=== PATIENT | male | born 1955 | race Caucasian/White ===

== ENCOUNTER 2020-03-24 21:10 | Observation (INO) | payer MEDICARE, MEDICAID ==
[~2020-03-24] VITALS: Ht 188 cm; Wt 90.9 kg
[2020-03-24] MEDS ORDERED: ASPIRIN 81 MG TABLET CHEW PO ONE (21:30)
[2020-03-24] MEDS ORDERED: ASPIRIN 81 MG TABLET CHEW ONE (21:36)
--- NOTE | 2020-03-24 21:37 | NUR ---
ERP TO BEDSIDE AT 2130.
[2020-03-24 22:06] LABS: MEAN CORPUSCULAR HEMOGLOBIN 20.3 pg (27.5-34.5); MEAN CORPUSCULAR HGB CONC 29.9 g/dL (33.2-36.2); MEAN CORPUSCULAR VOLUME 68.1 fL (81-97); MEAN PLATELET VOLUME 8.4 fL (7.4-10.4); PLATELET COUNT 425 x10^3/uL (130-400); RED BLOOD COUNT 4.43 x10^6/uL (4.38-5.82)
[2020-03-24 22:17] LABS: ANION GAP 7 mmol/L (5-15); CHLORIDE 102 mmol/L (98-107); CREATININE 1.16 mg/dL (0.7-1.3)
[2020-03-24 22:21] LABS: TROPONIN I < 0.015 ng/mL (0.000-0.045)
[2020-03-24 22:28] LABS: BASOPHILS # (AUTO) 0.03 x10^3/uL (0-0.1); BASOPHILS % (AUTO) 0 % (0-1); EOSINOPHILS # (AUTO) 0.39 x10^3/uL (0-0.4); EOSINOPHILS % (AUTO) 4 % (1-7); LYMPHOCYTES # (AUTO) 1.56 x10^3/uL (1-3.4); LYMPHOCYTES % (AUTO) 15 % (22-44); MD MORPH REVIEW ONLY; MONOCYTES # (AUTO) 0.79 x10^3/uL (0.2-0.8); MONOCYTES % (AUTO) 7 % (2-9); NEUTROPHILS # (AUTO) 7.83 x10^3/uL (1.8-6.8); NEUTROPHILS % (AUTO) 74 % (42-75)
[2020-03-24 22:29] LABS: ANISOCYTOSIS 1+
[2020-03-24 22:30] LABS: MICROCYTOSIS 1+; POLYCHROMASIA 1+
[2020-03-24 22:31] LABS: HYPOCHROMIA 1+; OVALOCYTES 1+; STOMATOCYTES 1+
[2020-03-24 22:32] LABS: <PLATELET ESTIMATE> INCREASED; LARGE PLATELETS 1+
--- NOTE | 2020-03-24 23:08 | NUR ---
PT STATES HE IS FREE FROM PAIN.
--- NOTE | 2020-03-24 23:40 | NUR ---
ERP BACK TO BEDSIDE. Addendum: 03/24/20 at 2340 by [email or web address] ERP BACK TO BEDSIDE TO UPDATE PT ON POC.
--- NOTE | 2020-03-25 | NUR ---
ADMITTING PROVIDER AT BEDSIDE.
--- NOTE | 2020-03-25 00:01 | NUR ---
LATE ENTRY SUMMARY NOTE: THIS PT STATES HIS CP AWOKE HIM FROM SLEEP. PT STATES IT'S BEEN REOCCURING FOR THE PAST COUPLE NIGHTS. PT DESCRIBES PAIN DULL ON THE LEFT SIDE. PT STATES HIS PAIN WAS RELIEVED WITH ASA. HE DENIED SOB. HE HAS A HX OF MULTIPLE MIs WITH MULTIPLE STENT PLACEMENTS. HE ALSO HAS A PACEMAKER. 2.5 YEARS AGO HE WAS DIAGNOSED WITH COLO-RECTAL CA, CONSIDERING HOSPICE CARE. PT STATES HE BLEEDS FROM HIS RECTUM BECAUSE OF HIS DIAGNOSIS BUT IS NOT CONCERED ABOUT HIS BOWEL HABITS. PT HAS BEEN LAYING IN BED CONNECTED TO BP, CARDIAC AND O2 MONITORS IN POSITION OF COMFORT. CALL LIGHT IN REACH AND VISITOR HAS REMAINED AT THE BEDSIDE.
[2020-03-25 00:41] VITALS: BP 100/60
[2020-03-25] MEDS ORDERED: hydrALAzine 20 MG/ML, 1ML IVPush PRN (01:00)
[2020-03-25] MEDS ORDERED: morphine SULFATE 10 MG/ML, 1ML IVPush PRN (01:00)
[2020-03-25] MEDS ORDERED: POLYETHYLENE GLYCOL 17 GM PACKET PO PRN (01:00)
[2020-03-25] MEDS ORDERED: MELATONIN 5 MG TABLET PO PRN (01:00)
[2020-03-25] MEDS ORDERED: DOCUSATE 100 MG CAPSULE PO PRN (01:00)
[2020-03-25] MEDS ORDERED: ACETAMINOPHEN 325 MG TABLET PO PRN (01:00)
[2020-03-25] MEDS ORDERED: HYDR-3245 PO (01:10)
[2020-03-25] MEDS ORDERED: AMIO100T4 PO (01:10)
[2020-03-25] MEDS ORDERED: AMLO10TA8 PO (01:10)
[2020-03-25] MEDS ORDERED: SPIR25TA5 PO (01:10)
[2020-03-25] MEDS ORDERED: INSU100V8 SQ (01:10)
[2020-03-25] MEDS ORDERED: INSU100V12 SQ (01:10)
[2020-03-25] MEDS ORDERED: LISI2.5T PO (01:10)
[2020-03-25] MEDS ORDERED: METO25TA35 PO (01:10)
[2020-03-25 04:29] VITALS: BP 99/61
[2020-03-25] MEDS: HYDROcodone/APAP 10/325 MG TABLET PO PRN ×2 (04:30→14:33)
[2020-03-25 04:35] LABS: TROPONIN I < 0.015 ng/mL (0.000-0.045)
[2020-03-25 07:19] VITALS: BP 113/69
[2020-03-25] MEDS ORDERED: REGADENOSON 0.4 MG/5 ML SYRINGE ONE (08:32)
[2020-03-25] MEDS ORDERED: morphine SULFATE 100 MG TABLET.ER PO SCH (09:00)
[2020-03-25 12:15] VITALS: BP 113/66
== END 2020-03-25 15:40 | disposition home or self-care (01) ==
LOC: ED 21:40 → INTOOBSV 23:44 → EDIP 23:44 → 5SO 03-25 00:44 → DCLOUNGE 03-25 15:35
PROVIDERS: ADMIT Student in an Organized Health Care Education/Training Program; ATTEND Hospitalist
DX: I25.10 Atherosclerotic heart disease of native coronary artery without angina pectoris (principal); I25.5 Ischemic cardiomyopathy; I11.0 Hypertensive heart disease with heart failure; I50.22 Chronic systolic (congestive) heart failure; C20 Malignant neoplasm of rectum; E11.65 Type 2 diabetes mellitus with hyperglycemia; J44.9 Chronic obstructive pulmonary disease, unspecified; I25.2 Old myocardial infarction; D64.9 Anemia, unspecified; F11.90 Opioid use, unspecified, uncomplicated; E78.5 Hyperlipidemia, unspecified; Z79.82 Long term (current) use of aspirin; Z79.899 Other long term (current) drug therapy; Z85.038 Personal history of other malignant neoplasm of large intestine; Z87.891 Personal history of nicotine dependence; Z95.0 Presence of cardiac pacemaker; Z79.02 Long term (current) use of antithrombotics/antiplatelets; Z79.4 Long term (current) use of insulin; Z95.5 Presence of coronary angioplasty implant and graft
CPT/HCPCS: 36415; 71045; 78452; 80048; 82040; 83880; 84484; 85025; 93005; 93017; 93306; 99285; A9502; G0378; J2785

== ENCOUNTER 2020-10-08 08:32 | Day surgery (SDC) | payer MEDICARE, MEDICAID ==
[~2020-10-08] VITALS: Ht 188 cm; Wt 91.8 kg
[~2020-10-08 08:32] MED LIST: AMIO100T4 PO; AMLO-211 PO; HYDR1TAB53 PO; INSU100V12 SQ; INSU100V8 SQ; LISI2.5T PO; METO25TA35 PO; SPIR25TA5 PO
[2020-10-08] MEDS ORDERED: SODIUM CHLORIDE 0.9% 1,000 ML IV SCH (09:00)
[2020-10-08 09:08] VITALS: BP 107/64
[2020-10-08 09:26] LABS: BASOPHILS % (AUTO) 1 % (0-1); EOSINOPHILS % (AUTO) 2 % (1-7); LYMPHOCYTES % (AUTO) 14 % (22-44); MEAN CORPUSCULAR HEMOGLOBIN 22.8 pg (27.5-34.5); MEAN CORPUSCULAR HGB CONC 31.3 g/dL (33.2-36.2); MEAN PLATELET VOLUME 7.9 fL (7.4-10.4); MONOCYTES % (AUTO) 11 % (2-9); NEUTROPHILS % (AUTO) 73 % (42-75); PLATELET COUNT 375 x10^3/uL (130-400); RED BLOOD COUNT 4.11 x10^6/uL (4.38-5.82); RED CELL DISTRIBUTION WIDTH 16.1 % (9.4-14.8)
[2020-10-08] MEDS ORDERED: Morphine ER PO (09:26)
[2020-10-08] MEDS ORDERED: OMEP-110 PO (09:26)
[2020-10-08] MEDS ORDERED: INSU100I28 PO (09:26)
[2020-10-08] MEDS ORDERED: ROSU5TAB PO (09:26)
[2020-10-08] MEDS ORDERED: LISI5TAB7 PO (09:26)
[2020-10-08] MEDS ORDERED: SPIR25TA PO (09:26)
[2020-10-08] MEDS ORDERED: NITR0.6T4 SL (09:26)
[2020-10-08] MEDS ORDERED: ALBU8.5H8 INH (09:28)
[2020-10-08] MEDS ORDERED: CHOL10003 PO (09:28)
[2020-10-08] MEDS ORDERED: MIDAZOLAM 1 MG/ML, 5ML ONE (09:29)
[2020-10-08] MEDS ORDERED: FENTANYL PF 100 MCG/2ML ONE (09:29)
[2020-10-08] MEDS ORDERED: LIDOCAINE 1%, 20ML ONE (09:29)
[2020-10-08] MEDS ORDERED: CEFAZOLIN 1,000 MG ONE (09:29)
[2020-10-08] MEDS ORDERED: CEFAZOLIN PMX 1GM/50ML 50 ML ONE (09:29)
[2020-10-08 09:32] LABS: MD NO
[2020-10-08] MEDS ORDERED: HYDR120S6 PO (09:33)
[2020-10-08] MEDS ORDERED: DIPH25CA61 PO (09:33)
[2020-10-08 09:50] LABS: ANION GAP 7 mmol/L (5-15); CALCIUM 8.8 mg/dL (8.5-10.1); CHLORIDE 102 mmol/L (98-107)
[2020-10-08 09:51] LABS: CREATININE 1.28 mg/dL (0.7-1.3)
[2020-10-08] MEDS ORDERED: TEMPLATE NON-FORMULARY MED. (Nitroglycerin 0.6** (Nitroglycerin**) 0.6 MG) SL PRN (10:30)
[2020-10-08] MEDS ORDERED: ACETAMINOPHEN 325 MG TABLET PO PRN (10:30)
[2020-10-08] MEDS ORDERED: HYDROcodone/APAP 10/325 MG TABLET PO SCH (10:30)
[2020-10-08] MEDS ORDERED: INSULIN DETEMIR PO PRN (10:30)
[2020-10-08] MEDS ORDERED: Hold all anticoagulants for 24 hours (including Lovenox and Heparin) MC PRN (10:30)
[2020-10-08] MEDS ORDERED: [UNRECOGNIZED DRUG - OTHER] SQ SCH (21:00)
[2020-10-08] MEDS ORDERED: SODIUM CHLORIDE FLUSH 10ML SYR IVF SCH (21:00)
[2020-10-08] MEDS ORDERED: INSULN ASP PRT SQ SCH (21:00)
[2020-10-08] MEDS ORDERED: TEMPLATE NON-FORMULARY MED. (Rosuvastatin Calcium** (Crestor**) 5 MG) PO SCH (21:00)
[2020-10-08] MEDS ORDERED: METOPROLOL TARTRATE 25 MG TAB PO SCH (21:00)
[2020-10-08] MEDS ORDERED: INSULIN ASPART SQ SCH (21:00)
[2020-10-09] MEDS ORDERED: DIPHENHYDRAMINE 25 MG CAPSULE PO SCH (09:00)
[2020-10-09] MEDS ORDERED: SPIRONOLACTONE 25 MG TABLET PO SCH (09:00)
[2020-10-09] MEDS ORDERED: LISINOPRIL 5 MG TABLET PO SCH (09:00)
[2020-10-09] MEDS ORDERED: [UNRECOGNIZED DRUG - OTHER] PO SCH (09:00)
[2020-10-09] MEDS ORDERED: OMEPRAZOLE 20 MG CAPSULE.DR PO SCH (09:00)
[2020-10-09] MEDS ORDERED: CHOLECALCIFEROL 1,000 UNIT TABLET PO SCH (09:00)
== END 2020-10-08 12:26 | disposition home or self-care (01) ==
LOC: CACL 08:32
PROVIDERS: ATTEND Internal Medicine Cardiovascular Disease
DX: Z45.02 Encounter for adjustment and management of automatic implantable cardiac defibrillator (principal); I25.5 Ischemic cardiomyopathy; I42.0 Dilated cardiomyopathy; I47.2 Ventricular tachycardia; I11.0 Hypertensive heart disease with heart failure; I50.9 Heart failure, unspecified; I25.2 Old myocardial infarction; E11.9 Type 2 diabetes mellitus without complications; F12.10 Cannabis abuse, uncomplicated; Z79.4 Long term (current) use of insulin; Z79.891 Long term (current) use of opiate analgesic; Z79.899 Other long term (current) drug therapy; Z87.891 Personal history of nicotine dependence
CPT/HCPCS: 33263; 36415; 80048; 85025; 99156; C1721; J0690; J2250; J3010